=== PATIENT | female | born 1985 | race Caucasian/White ===

== ENCOUNTER 2017-03-27 13:30 | Emergency (ER) | payer MEDICAID ==
[~2017-03-27] VITALS: Ht 162.6 cm; Wt 95.8 kg
[~2017-03-27 13:30] MED LIST: ALPR.25 PO; LANTUS2P SC; LEVEMIR SQ; LEXA5TAB PO; NOVOLOGP2 SQ
[2017-03-27 13:34] VITALS: BP 118/80; PULSE 96; RESP 18; TEMP 98.6; O2SAT 99
[2017-03-27] MEDS ORDERED: AZIT250T3 PO (14:00)
[2017-03-27] MEDS ORDERED: CEFU1TAB20 PO (14:00)
[2017-03-27] MEDS ORDERED: BUPR150T3 PO (14:00)
[2017-03-27] MEDS ORDERED: OXYC1TAB63 PO (14:00)
[2017-03-27] MEDS ORDERED: LANTUS2P SQ (14:00)
[2017-03-27] MEDS ORDERED: NORC5TAB PO (14:00)
[2017-03-27] MEDS ORDERED: NOVOLOGP2 SQ ×2 (14:00)
[2017-03-27 14:13] LABS: BLOOD, URINE TRACE (NEG); KETONE, URINE NEG (NEG); NITRITE,URINE NEG (NEG); PH, URINE 6.5 (5.0-8.5)
--- NOTE | 2017-03-27 14:14 | PD ---
HPI Chief Complaint: Complaint Time Seen by Provider: 13:42 Travel History International Travel<30 days: No Contact w/Intl Traveler<30days: No Traveled to known affect area: No History of Present Illness HPI The patient was seen and examined in the presence of the nurse. This patient complains of dysuria. She says it feels like razor blades when she is urinating. She is currently on antibiotics for UTI. She was recently hospitalized at [facility] and left 2 or 3 days ago. She was found to be while there had a consultation with presetter operator. She had an ultrasound confirming IUP. She comes in today saying that "[facility] made her worse." She says that she became so annoying that they discharged her. She developed some vaginal bleeding while she was in their hospital. She still complains of that. She is not having abdominal or pelvic pain. No presyncopal symptoms. Severity of symptoms is moderate. No alleviating factors. PFSH Past Medical History Arthritis: No Asthma: Yes (EXTREME COLD OR HEAT INDUCED) Anxiety: Yes Depression: Yes Cancer: No Cardiovascular Problems: No Diabetes: Yes Patient Takes Glucophage: No Diminished Hearing: No Endocrine: No Gastrointestinal Disorders: No GERD: No Genitourinary: Yes (RECENT DIAGNOSIS OF CEVITCITIS,VAGINITIS-05/19/11) Headaches: No Hiatal Hernia: No Heparin Induced Thrombocytopen: No Immune Disorder: No Implanted Vascular Access Dvce: No Kidney Stones: No Musculoskeletal: No Neurologic: No Psychiatric: Yes Reproductive: Yes (PCOS, HSV) Respiratory: Yes (asthma - temp reactive) Migraines: No Renal Failure: No Seizures: No Sickle Cell Disease: No Thyroid Disease: No Ulcer: No Tetanus Vaccination: < 5 Years ?: LMP: 02/19/17 : 3 Para: 0 Miscarriage: 2 : 0 Past Surgical History Abdominal Surgery: Yes (APPENDECTOMY) AICD: No Appendectomy: Yes Arteriovenous Shunt: No Cardiac Surgery: No Cholecystectomy: Yes Ear Surgery: No Endocrine Surgery: No Eye Surgery: No Genitourinary Surgery: No Gynecologic Surgery: No Insulin Pump: No Joint Replacement: No Neurologic Surgery: No Oral Surgery: No Pacemaker: No Thoracic Surgery: No Other Surgery: Yes Social History Alcohol Use: Yes (RARELY - once a year if that. ) Tobacco Use: No (never) Substance Use: No (Tried meth once. 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) Reported Meds & Prescriptions Reported Meds & Active Scripts Active Reported [place] (Hydrocodone-Acetaminophen) 5-325 mg Tab 1 Tab PO Q4H PRN Lantus Inj (Insulin Glargine) 1,000 Unit/10 Ml Vial 30 Units SQ HS Novolog Inj (Insulin Aspart) 1,000 Unit/10 Ml Vial 5 Units SQ TIDAC Novolog Inj (Insulin Aspart) 1,000 Unit/10 Ml Vial 1 Units SQ ONCE Bupropion HCl ER 24 HR (Bupropion HCl) 150 Mg Tab 150 Mg PO DAILY Cefuroxime (Cefuroxime Axetil) 500 Mg Tab 500 Mg PO BID Azithromycin 250 Mg Tab 250 Mg PO DAILY Oxycodone-Acetaminophen 5-325 mg Tab 2 Tab PO Q6H PRN Review of Systems HENT: No: Headaches Cardiovascular: No: Chest Pain or Discomfort Gastrointestinal: No: Vomiting Genitourinary: Positive: Dysuria Musculoskeletal: Positive: Myalgias Skin: No Rash Neurologic: No: Syncope Physical Exam Narrative GASTROINTESTINAL: Abdomen soft, non-tender, nondistended. Positive bowel sounds. No hepato-splenomegaly, or palpable masses. No guarding. SKIN: Focused skin assessment reveals no rash or ulcers. Skin is warm and dry. Palpation shows no induration or nodules. There are ecchymotic areas where she injected insulin NECK: Symmetrical appearance, midline trachea. No mass or crepitus. Thyroid without enlargement, tenderness, or mass. RESPIRATORY: Respiratory effort unlabored, no retractions or use of accessory muscles. Breath sounds are clear and symmetric. CARDIOVASCULAR: Regular rate and rhythm without murmur. Extremities showed no edema or varicosities. Pelvic: Cervix closed. No cervical motion tenderness. Very scant blood in the vault. No adnexal mass Data Data Last Documented VS Vital Signs Date Time Temp Pulse Resp B/P Pulse Ox O2 Delivery O2 Flow Rate FiO2 03/27/17 13:34 98.6 96 18 118/80 99 Orders Urinalysis - C+S If Indicated (03/27/17 13:56) Ed Urine Pregnancytest Poc (03/27/17 14:01) Labs Laboratory Tests Test 03/27/17 14:00 Urine Collection Type CLEAN CATCH Urine Color YELLOW Urine Turbidity CLEAR Urine pH 6.5 Urine Specific [place] GREATER THAN 1.035 Urine Protein NEG mg/dL Urine Glucose (UA) 1000 OR GREATER mg/dL Urine Ketones NEG mg/dL Urine Occult Blood TRACE Urine Nitrite NEG Urine Bilirubin NEG Urine Leukocyte Esterase NEG Urine WBC 0-2 /hpf Urine Squamous Epithelial 3-5 /hpf Cells Microscopic Urinalysis Comment CULT NOT INDICATED MDM Medical Decision Making Medical Screen Exam Complete: Yes Emergency Medical Condition: Yes Medical Record Reviewed: Yes Differential Diagnosis Threatened , spontaneous miscarriage, ectopic Narrative Course I have reviewed the patient's electronic medical record. Patient was last here June 2016 Patient is having a threatened , being 6 weeks with IUP and scant vaginal bleeding Discussed pelvic rest measures and recommended close OB follow-up Urinalysis shows no sign of infection Urine is positive Diagnosis Primary Impression: Threatened in first trimester Additional Instructions: The patient was advised to follow up with their primary care and OB physician and return if they worsen. Utilize pelvic rest Med/Other Pt SpecificInfo: Other Disposition: 01 DISCHARGE HOME Condition: Stable Neto Barraza MD Mar 27, 2017 14:14
[2017-03-27 14:19] LABS: GLUCOSE,URINE 1000 OR GREATER mg/dL (NEG)
[2017-03-27 14:27] LABS: METHOD OF COLLECTION CLEAN CATCH
[2017-03-27 14:28] LABS: COMMENT (UR) CULT NOT INDICATED; CULTURE IF INDICATED CULT NOT INDICATED; URINE COLOR YELLOW (YELLW/STRAW); WBC, URINE 0-2 /hpf (0-5)
== END 2017-03-27 15:14 | disposition home or self-care (01) ==
LOC: PHED 13:30
DX: O20.0 Threatened abortion (principal); E28.2 Polycystic ovarian syndrome; O24.111 Pre-existing type 2 diabetes mellitus, in pregnancy, first trimester; Z3A.01 Less than 8 weeks gestation of pregnancy
CPT/HCPCS: 81001; 84703; 99283